=== PATIENT | male | born 1970 | race Caucasian/White ===

== ENCOUNTER 2021-11-19 18:04 | Emergency (ER) | payer OTHER ==
[2021-11-19 21:27] LABS: HEMOGLOBIN 16.9 gm/dl (14.0-17.5); RED BLOOD COUNT 6.14 M/UL (4.20-5.50); WHITE BLOOD COUNT 12.9 K/UL (4.5-11.0)
[2021-11-19 21:41] LABS: BUN/CREATININE RATIO 18 (0-10)
[2021-11-20] MEDS ORDERED: LOMOTIL 2.5-0.1 EACH PO (00:21)
== END 2021-11-20 00:40 | disposition home or self-care (01) ==
LOC: ER1 18:04
PROVIDERS: Family Medicine
DX: K52.9 Noninfective gastroenteritis and colitis, unspecified (principal); I10 Essential (primary) hypertension; E11.9 Type 2 diabetes mellitus without complications; Z88.0 Allergy status to penicillin; Z88.6 Allergy status to analgesic agent; Z88.1 Allergy status to other antibiotic agents
CPT/HCPCS: 80053; 83605; 83690; 85025; 93005; 96374; 96375; 99284; J1885; J2405; Q9967